=== PATIENT | female | born 1970 | race Caucasian/White ===

== ENCOUNTER → 2019-01-08 09:03 | Outpatient (CLI) | payer OTHER, MEDICAID, SELFPAY ==
--- NOTE | 2019-01-08 | DI.MG.S_ITS ---
BILATERAL DIGITAL SCREENING MAMMOGRAM 3D/2D WITH CAD: 01/08/2019 CLINICAL: Routine screening. Comparison is made to exams dated: 01/07/2017 mammogram, 01/03/2016 mammogram, and 05/03/2014 mammogram - [facility]. The tissue of both breasts is heterogeneously dense. This may lower the sensitivity of mammography. Current study was also evaluated with a Computer Aided Detection (CAD) system. No significant masses, calcifications, or other findings are seen in either breast. There has been no significant interval change. IMPRESSION: NEGATIVE There is no mammographic evidence of malignancy. A 1 year screening mammogram is recommended. This exam was interpreted at Station ID: [id number]. NOTE: For mammograms, a report in lay terms will be sent to the patient. Approximately 15% of breast malignancies will not be visualized mammographically. In the management of a palpable breast mass, a negative mammogram must not discourage biopsy of a clinically suspicious lesion. Electronically Signed By: Holger henry/nicole:01/10/2019 07:02:22 copy to: Rhiannon Saavedra letter sent: Normal Exam ACR BI-RADS Category 1: Negative 3341F
== END ==
PROVIDERS: PCP Family Medicine; Visit Provider Family Medicine
DX: Z12.31 Encounter for screening mammogram for malignant neoplasm of breast (principal)
CPT/HCPCS: 77063; 77067

== ENCOUNTER → 2019-11-10 15:19 | Outpatient (CLI) | payer OTHER, MEDICAID, SELFPAY | PROVIDERS: PCP Family Medicine; Referring Provider Family Medicine; Visit Provider Family Medicine | DX: Z78.0 Asymptomatic menopausal state (principal); Z82.62 Family history of osteoporosis | CPT/HCPCS: 77080 ==

== ENCOUNTER → 2019-12-24 08:29 | Outpatient (CLI) | payer OTHER, MEDICAID, SELFPAY ==
[2019-12-24 09:19] LABS: Add Manual Diff / Slide Review NO; Basophils Absolute Auto 0 /uL (0-100); Basophils Percent Auto 0.9 % (0-2); Eosinophils Absolute Auto 200 /uL (0-450); Eosinophils Percent Auto 4.8 % (2-4); Hematocrit 45.9 % (36-46); Hemoglobin 15.4 g/dL (12.0-16.0); Lymphocytes Absolute Auto 1300 /uL (1100-4500); Lymphocytes Percent Auto 26.3 % (25-40); Mean Corpuscular HGB Conc 33.6 % (30-36); Mean Corpuscular Hemoglobin 31.3 PG (26-34); Mean Corpuscular Volume 93.2 fL (80-100); Monocytes Absolute Auto 300 /uL (0-900); Monocytes Percent Auto 6.4 % (3-14); Neutrophils Absolute Auto 3000 /uL (1500-7000); Neutrophils Percent Auto 61.6 % (50-75); Platelet Count 222 X10^3/uL (150-400); Red Blood Cell Count 4.92 X10^6/uL (4.0-5.2); Red Cell Distribution Width 12.6 % (11.6-14.8); White Blood Cell Count 4.9 X10^3/uL (4.5-11.0)
[2019-12-24 09:33] LABS: Alanine Aminotransferase 18 IU/L (<35); Albumin 4.1 g/dL (3.5-5.0); Albumin Globulin Ratio 1.3 (1.0-2.8); Alkaline Phosphatase 71 U/L (38-126); Aspartate Aminotransferase 32 IU/L (14-36); BUN Creatinine Ratio 22.7 (6-22); Bilirubin Total 0.6 mg/dL (0.2-1.3); Blood Urea Nitrogen 17 mg/dL (7-17); Calcium 9.3 mg/dL (8.4-10.2); Carbon Dioxide 30 mmol/L (22-32); Chloride 106 mmol/L (98-107); Cholesterol 222 mg/dL (140-199); Estimated Glomerular Filt Rate > 60.0 mL/min (>60); Globulin 3.2 g/dL (1.7-4.1); Glucose 113 mg/dL (70-100); HDL Cholesterol 53 mg/dL (40-60); HEMOLYSIS < 15 (0-50); LDL Cholesterol Calculated 153 mg/dL (<100); Potassium 3.8 mmol/L (3.4-5.1); Sodium 139 mmol/L (137-145); Total Protein 7.3 g/dL (6.3-8.2); Triglycerides 82 mg/dL (35-150)
[2019-12-24 09:47] LABS: Creatinine Urine Random 211.9 mg/dL
[2019-12-24 09:53] LABS: Microalbumi Creatinin Ratio Ur 2.8 ug/mg CR (<30); Microalbumin Urine Random 0.6 mg/dL (0-1.6)
[2019-12-24 10:17] LABS: Thyroid Stimulating Hormone 1.17 uIU/mL (0.47-4.68)
[2019-12-26 09:25] LABS: Hemoglobin A1C% w Est Avg Glu 5.3 % (4.0-6.0)
== END ==
PROVIDERS: PCP Family Medicine; Referring Provider Family Medicine; Visit Provider Family Medicine
DX: I10 Essential (primary) hypertension (principal)
CPT/HCPCS: 36415; 80053; 80061; 82043; 82570; 83036; 84443; 85025

== ENCOUNTER → 2020-02-18 14:53 | Outpatient (CLI) | payer OTHER, MEDICAID, SELFPAY | PROVIDERS: PCP Family Medicine; Visit Provider Physician Assistant | DX: N34.3 Urethral syndrome, unspecified (principal) | CPT/HCPCS: 87086 ==

== ENCOUNTER → 2020-06-28 15:38 | Outpatient (CLI) | payer OTHER, MEDICAID, SELFPAY ==
[2020-06-28] MEDS: COVID-19 VACC #1, MRNA(MOD) 100 MCG/0.5 ML VIAL IM (15:48)
== END ==
PROVIDERS: PCP Family Medicine; Visit Provider Internal Medicine
DX: Z23 Encounter for immunization (principal)
CPT/HCPCS: 0011A; 91301

== ENCOUNTER → 2020-08-03 15:25 | Outpatient (CLI) | payer OTHER, MEDICAID, SELFPAY ==
[2020-08-03] MEDS: COVID-19 VACC #2, MRNA(MOD) 100 MCG/0.5 ML VIAL IM (15:44)
== END ==
PROVIDERS: PCP Family Medicine; Visit Provider Internal Medicine
DX: Z23 Encounter for immunization (principal)
CPT/HCPCS: 0012A; 91301

== ENCOUNTER → 2021-03-11 17:20 | Outpatient (CLI) | payer OTHER, MEDICAID, SELFPAY ==
--- NOTE | 2021-03-11 | DI.MG.S_ITS ---
BILATERAL DIGITAL SCREENING MAMMOGRAM 3D/2D WITH CAD: 03/11/2021 CLINICAL: Routine screening. Comparison is made to exams dated: 01/08/2019 mammogram, 01/07/2017 mammogram, and 01/03/2016 mammogram - [facility]. The tissue of both breasts is heterogeneously dense. This may lower the sensitivity of mammography. Current study was also evaluated with a Computer Aided Detection (CAD) system. There are benign calcifications in both breasts. No significant masses, calcifications, or other findings are seen in either breast. There has been no significant interval change. IMPRESSION: BENIGN There is no mammographic evidence of malignancy. A 1 year screening mammogram is recommended. This exam was interpreted at Station ID: [id number]. NOTE: For mammograms, a report in lay terms will be sent to the patient. Approximately 15% of breast malignancies will not be visualized mammographically. In the management of a palpable breast mass, a negative mammogram must not discourage biopsy of a clinically suspicious lesion. Electronically Signed By: Surjit george/nicole:03/12/2021 13:53:39 copy to: Rhiannon Saavedra letter sent: Normal Exam ACR BI-RADS Category 2: Benign Finding(s) 3342F
== END ==
PROVIDERS: PCP Family Medicine; Referring Provider Family Medicine; Visit Provider Family Medicine
DX: Z12.31 Encounter for screening mammogram for malignant neoplasm of breast (principal)
CPT/HCPCS: 77063; 77067

== ENCOUNTER → 2021-08-12 10:05 | Outpatient (CLI) | payer OTHER, MEDICAID, SELFPAY ==
[2021-08-12 12:18] LABS: COVID19 -Nasal RAPID Negative (Negative)
== END ==
PROVIDERS: PCP Family Medicine; Visit Provider Surgery
DX: Z20.822 Contact with and (suspected) exposure to COVID-19 (principal); Z01.812 Encounter for preprocedural laboratory examination
CPT/HCPCS: 87635; C9803

== ENCOUNTER 2021-08-13 08:09 | Day surgery (SDC) | payer OTHER, MEDICAID, SELFPAY ==
--- NOTE | 2021-08-13 | PATH_ITS ---
[facility] Accession Number: [id number] . 01 Material submitted: . rectum - RECTAL COLON POLYP . 01 Diagnosis: Rectal Polyp, Biopsy: Hyperplastic polyp. MRV 08/16/2021 1229 Local . 01 Electronically signed: . Gian Becerril MD, PhD, Pathologist NPI- [id number] . 01 Gross description: . RECTAL COLON POLYP: Received in formalin is 1 fragment(s) of schumacher, soft tissue measuring 0.3 x 0.2 x 0.2 cm submitted entirely in 1 cassette(s) /MWS 08/14/2021 0719 Local . 01 Pathologist provided ICD-10: K62.1 . 01 CPT . 457623 Specimen Comment: A courtesy copy of this report has been sent to [phone] Performed at: [address] [facility] [address] [place] [address] [id number] MD Surjit Hutchinson MD Phone: [phone]
[2021-08-13 08:23] VITALS: BP 138/75; PULSE 77; RESP 16; TEMP 36.5; O2SAT 99; BMI 22.3
[2021-08-13] MEDS: LACTATED RINGERS 1,000 ML 200 ML IV (08:42)
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
--- NOTE | 2021-08-13 09:38 | P.OP.COLON_ITS ---
Operative Date/Time/Diagnoses Date of procedure: 08/13/21 Time of procedure: 09:39 Pre-op diagnosis: Screening Post-op diagnosis: same Procedure & Clinicians Study performed: Colonoscopy Same procedure as scheduled: Yes Indications: Screening Surgeon: Jimbo Villegas Procedure Notes Procedure in detail: Medications: Conscious sedation using 6mg IV midazolam and 200mcg IV of fentanyl The history and physical was performed/updated and the patient is ASA class is 2. The procedure was discussed in detail with the patient. Potential risks complications including infection, bleeding, missed diagnosis, perforation, need for surgery, and were explained. Their questions were answered and informed consent was obtained. Patient was brought to the procedure room and placed standard monitoring equipment. The patient's vital signs were monitored continuously throughout the entire procedure. Prior to starting time-out was performed. The patient was placed in the left lateral recumbent position. Procedural sedation was adminis tered. Examination began with a thorough inspection of the perianal area there was no evidence of fissures, fistulae, external hemorrhoids or cutaneous malignancy. The colonoscopy scope was then placed into the anal canal and was advanced to the cecum, which was identified by the ileocecal valve, the appendiceal orifice and the confluence of the taenia. The scope was then slowly withdrawn examining colon thoroughly in all directions, irrigating it of any residual stool. FINDINGS 1. Rectum-distal 5 mm polyp removed with biopsy forceps 2. Remainder of colon was normal healthy in appearance The patient tolerated the procedure well. They will be discharged once criteria are met. The prep was of good/excellent quality. The withdrawl time was 6 minutes. The sedation time was 17 minutes. Specimen(s): other (Rectal polyp) Complications: none Post-procedure Recommendations: Colonoscopy in 5 years Disposition: same day surgery
[2021-08-13] MEDS: fentaNYL 250 MCG/5 ML INJ 200 MCG IV (09:48)
[2021-08-13] MEDS: MIDAZOLAM 5 MG/5 ML VIAL 6 MG IV (09:48)
[2021-08-13 10:03] VITALS: BP 118/74; PULSE 78; RESP 16; TEMP 36.3; O2SAT 96
[2021-08-13 10:08] VITALS: BP 112/71; PULSE 67; RESP 14; O2SAT 98
[2021-08-13 10:13] VITALS: BP 119/79; PULSE 74; RESP 16; O2SAT 99
[2021-08-13 10:28] VITALS: BP 128/84; PULSE 72; RESP 14; O2SAT 99
== END 2021-08-13 10:30 | disposition home or self-care (01) ==
PROVIDERS: PCP Family Medicine; Referring Provider Surgery; Visit Provider Surgery
PROC: 0DJD8ZZ Inspection of Lower Intestinal Tract, Via Natural or Artificial Opening Endoscopic (ICD-10-PCS; CPT 45378; principal; 2021-08-13 09:15)
DX: Z12.11 Encounter for screening for malignant neoplasm of colon (principal); K62.1 Rectal polyp
CPT/HCPCS: 45380; 99152; J2250; J3010

== ENCOUNTER → 2022-01-09 08:44 | Outpatient (CLI) | payer OTHER, MEDICAID, SELFPAY ==
[2022-01-09 10:35] LABS: Hemoglobin A1C% w Est Avg Glu 5.5 % (4.0-6.0)
[2022-01-09 10:42] LABS: Add Manual Diff / Slide Review NO; Basophils Absolute Auto 0 /uL (0-100); Basophils Percent Auto 0.6 % (0-2); Eosinophils Absolute Auto 300 /uL (0-450); Eosinophils Percent Auto 5.2 % (2-4); Hematocrit 43.3 % (36-46); Hemoglobin 14.8 g/dL (12.0-16.0); Lymphocytes Absolute Auto 1200 /uL (1100-4500); Lymphocytes Percent Auto 24.3 % (25-40); Mean Corpuscular HGB Conc 34.1 % (30-36); Mean Corpuscular Hemoglobin 31.4 PG (26-34); Mean Corpuscular Volume 92.1 fL (80-100); Monocytes Absolute Auto 300 /uL (0-900); Monocytes Percent Auto 6.5 % (3-14); Neutrophils Absolute Auto 3100 /uL (1500-7000); Neutrophils Percent Auto 63.4 % (50-75); Platelet Count 241 X10^3/uL (150-400); White Blood Cell Count 4.9 X10^3/uL (4.5-11.0)
[2022-01-09 11:08] LABS: Alanine Aminotransferase 31 IU/L (<35); Albumin Globulin Ratio 1.3 (1.0-2.8); Alkaline Phosphatase 85 U/L (38-126); Aspartate Aminotransferase 32 IU/L (14-36); BUN Creatinine Ratio 22.8 (6-22); Bilirubin Total 0.5 mg/dL (0.2-1.3); Blood Urea Nitrogen 18 mg/dL (7-17); Calcium 9.3 mg/dL (8.4-10.2); Carbon Dioxide 29 mmol/L (22-32); Chloride 105 mmol/L (98-107); Cholesterol 214 mg/dL (140-199); Estimated Glomerular Filt Rate > 60 mL/min (>60); Glucose 92 mg/dL (70-100); HDL Cholesterol 58 mg/dL (40-60); HEMOLYSIS < 15 (0-50); LDL Cholesterol Calculated 143 mg/dL (<100); Potassium 4.1 mmol/L (3.4-5.1); Sodium 141 mmol/L (137-145); Triglycerides 64 mg/dL (35-150)
== END ==
PROVIDERS: PCP Family Medicine; Referring Provider Family Medicine; Visit Provider Family Medicine
DX: I10 Essential (primary) hypertension (principal); R73.9 Hyperglycemia, unspecified
CPT/HCPCS: 36415; 80053; 80061; 83036; 85025

== ENCOUNTER → 2022-03-15 10:33 | Outpatient (CLI) | payer OTHER, MEDICAID, SELFPAY ==
--- NOTE | 2022-03-15 10:34 | DI.MG.S_ITS ---
BILATERAL DIGITAL SCREENING MAMMOGRAM 3D/2D WITH CAD: 03/15/2022 CLINICAL: Routine screening. Comparison is made to exams dated: 03/11/2021 mammogram, 01/08/2019 mammogram, and 01/07/2017 mammogram - [facility]. Both breasts are heterogeneously dense, which may obscure small masses (category c / 51-75% glandular tissue). Current study was also evaluated with a Computer Aided Detection (CAD) system. There are benign calcifications in both breasts. No significant masses, calcifications, or other findings are seen in either breast. There has been no significant interval change. IMPRESSION: BENIGN There is no mammographic evidence of malignancy. A 1 year screening mammogram is recommended. Based on the Tyrer Cuzick model (a risk assessment model) the patient's lifetime risk is 10.2% and her 10 year risk is 2.8%. According to the ACR, ACS, and NCCN guidelines, an annual breast MRI exam along with mammogram is recommended if the patient's lifetime risk is 20% or greater. This exam was interpreted at Station ID: [id number]. NOTE: For mammograms, a report in lay terms will be sent to the patient. Approximately 15% of breast malignancies will not be visualized mammographically. In the management of a palpable breast mass, a negative mammogram must not discourage biopsy of a clinically suspicious lesion. Electronically Signed By: Surjit george/nicole:03/17/2022 02:30:07 copy to: Rhiannon Saavedra letter sent: Normal Exam ACR BI-RADS Category 2: Benign Finding(s) 3342F
== END ==
PROVIDERS: PCP Family Medicine; Referring Provider Family Medicine; Visit Provider Family Medicine
DX: Z12.31 Encounter for screening mammogram for malignant neoplasm of breast (principal)
CPT/HCPCS: 77063; 77067

== ENCOUNTER → 2022-05-11 12:14 | Outpatient (CLI) | payer OTHER, MEDICAID, SELFPAY ==
[2022-05-11 14:43] LABS: Influenza A - CEPHEID Flu A NEGATIVE (NEGATIVE); Influenza B - CEPHEID Flu B NEGATIVE (NEGATIVE); Respiratory Syncytial Virus Negative (Negative)
[2022-05-11 14:51] LABS: COVID-19 CEPHEID 4-PLEX PCR Negative (Negative)
== END ==
PROVIDERS: PCP Family Medicine; Visit Provider Registered Nurse
DX: J02.9 Acute pharyngitis, unspecified (principal); B34.9 Viral infection, unspecified; Z20.822 Contact with and (suspected) exposure to COVID-19
CPT/HCPCS: 0241U; 87070; 87077; 87880

== ENCOUNTER → 2022-10-02 08:53 | Outpatient (CLI) | payer OTHER, MEDICAID, SELFPAY ==
[2022-10-02 10:14] LABS: Add Manual Diff / Slide Review NO; Basophils Absolute Auto 0 /uL (0-100); Eosinophils Absolute Auto 200 /uL (0-450); Eosinophils Percent Auto 4.1 % (2-4); Hematocrit 44.1 % (36-46); Hemoglobin 15.3 g/dL (12.0-16.0); Lymphocytes Absolute Auto 1400 /uL (1100-4500); Mean Corpuscular HGB Conc 34.8 % (30-36); Mean Corpuscular Hemoglobin 32.2 PG (26-34); Mean Corpuscular Volume 92.5 fL (80-100); Monocytes Absolute Auto 400 /uL (0-900); Monocytes Percent Auto 7.9 % (3-14); Neutrophils Absolute Auto 2700 /uL (1500-7000); Platelet Count 214 X10^3/uL (150-400); Red Blood Cell Count 4.77 X10^6/uL (4.0-5.2); Red Cell Distribution Width 12.4 % (11.6-14.8); White Blood Cell Count 4.8 X10^3/uL (4.5-11.0)
[2022-10-02 10:58] LABS: HEMOLYSIS < 15 (0-50); Iron 115 ug/dL (37-170)
[2022-10-02 11:09] LABS: Percent Iron Saturation 33 % (15-50); Total Iron Binding Capacity 348 ug/dL (265-497); Transferrin 263 mg/dL (206-381)
[2022-10-02 11:17] LABS: Free T4, Direct Thyroxine 0.98 ng/dL (0.78-2.19)
[2022-10-02 11:31] LABS: Thyroid Stimulating Hormone 1.94 uIU/mL (0.47-4.68)
[2022-10-02 11:33] LABS: Estradiol, Total 20.9 pg/mL
[2022-10-09 11:16] LABS: Percent Free Testosterone 1.66 % (0.50-2.80); Testosterone Free 0.43 ng/dL (0.10-0.85)
== END ==
PROVIDERS: PCP Family Medicine; Referring Provider Obstetrics & Gynecology; Visit Provider Obstetrics & Gynecology
DX: N95.1 Menopausal and female climacteric states (principal); R53.83 Other fatigue
CPT/HCPCS: 36415; 82670; 83540; 83550; 84402; 84403; 84439; 84443; 85025

== ENCOUNTER → 2023-01-06 13:16 | Outpatient (CLI) | payer OTHER, MEDICAID, SELFPAY ==
--- NOTE | 2023-01-06 13:17 | DI.US.S_ITS ---
PROCEDURE: US SOFT TISSUE HEAD AND NECK INDICATIONS: possible embedded glass in forehead TECHNIQUE: Real-time scanning was performed of the neck region of interest, with image documentation. COMPARISON: None. FINDINGS: There is a 7 mm mildly hypoechoic nonvascular focus within the soft tissues of the scalp with a few surrounding tiny echogenic foci. IMPRESSION: Possible foreign body within the scalp. Dictated by: Wendi Reynolds M.D. on 01/06/2023 at 16:42 Approved by: Wendi Reynolds M.D. on 01/06/2023 at 16:42
== END ==
PROVIDERS: PCP Family Medicine; Referring Provider Family Medicine; Visit Provider Family Medicine
DX: R22.0 Localized swelling, mass and lump, head (principal)
CPT/HCPCS: 76536

== ENCOUNTER → 2023-03-16 12:55 | Outpatient (CLI) | payer OTHER, MEDICAID, SELFPAY ==
--- NOTE | 2023-03-16 12:56 | DI.MG.S_ITS ---
BILATERAL DIGITAL SCREENING MAMMOGRAM 3D/2D WITH CAD: 03/16/2023 CLINICAL: Routine screening. Comparison is made to exams dated: 03/15/2022 mammogram, 03/11/2021 mammogram, and 01/08/2019 mammogram - [facility]. Both breasts are heterogeneously dense, which may obscure small masses (category c / 51-75% glandular tissue). Current study was also evaluated with a Computer Aided Detection (CAD) system. There are benign calcifications in both breasts. No significant masses, calcifications, or other findings are seen in either breast. There has been no significant interval change. IMPRESSION: BENIGN There is no mammographic evidence of malignancy. A 1 year screening mammogram is recommended. Based on the Tyrer Cuzick model (a risk assessment model) the patient's lifetime risk is 10.1% and her 10 year risk is 2.9%. According to the ACR, ACS, and NCCN guidelines, an annual breast MRI exam along with mammogram is recommended if the patient's lifetime risk is 20% or greater. This exam was interpreted at Station ID: [id number]. NOTE: For mammograms, a report in lay terms will be sent to the patient. Approximately 15% of breast malignancies will not be visualized mammographically. In the management of a palpable breast mass, a negative mammogram must not discourage biopsy of a clinically suspicious lesion. Electronically Signed By: Holger henry/nicole:03/16/2023 19:03:56 copy to: Rhiannon Saavedra letter sent: Normal Exam ACR BI-RADS Category 2: Benign Finding(s) 3342F
== END ==
PROVIDERS: PCP Family Medicine; Referring Provider Family Medicine; Visit Provider Family Medicine
DX: Z12.31 Encounter for screening mammogram for malignant neoplasm of breast (principal); R92.333 Mammographic heterogeneous density, bilateral breasts
CPT/HCPCS: 77063; 77067

== ENCOUNTER → 2023-05-26 14:21 | Outpatient (CLI) | payer OTHER, MEDICAID, SELFPAY ==
--- NOTE | 2023-05-26 14:22 | DI.US.S_ITS ---
PROCEDURE: US SOFT TISSUE HEAD AND NECK INDICATIONS: FOLLOW UP POSSIBLE FOREIGN BODY - SEE PRIOR ULTRASOUND 01/15 TECHNIQUE: Real-time scanning was performed of the neck region of interest, with image documentation. COMPARISON: [facility], , US SOFT TISSUE HEAD AND NECK, 01/06/2023, 13:53. Findings and impression: Incision tract is seen at the area of interest of the right forehead. There are two 0.5-1 mm echogenic structures seen on ultrasound, which may represent postsurgical sequelae, versus minute foreign bodies, versus postprocedural air. Dictated by: Devon Pak M.D. on 05/26/2023 at 15:58 Approved by: Devon Pak M.D. on 05/26/2023 at 16:01
== END ==
LOC: US 14:21
PROVIDERS: PCP Family Medicine; Referring Provider Family Medicine; Visit Provider Family Medicine
DX: M79.5 Residual foreign body in soft tissue (principal)
CPT/HCPCS: 76536

== ENCOUNTER → 2023-11-03 18:43 | Outpatient (CLI) | payer OTHER, MEDICAID, SELFPAY | PROVIDERS: PCP Family Medicine; Visit Provider Nurse Practitioner Family | DX: J02.9 Acute pharyngitis, unspecified (principal) | CPT/HCPCS: 87070; 87880 ==

== ENCOUNTER → 2024-02-20 18:03 | Outpatient (CLI) | payer OTHER, SELFPAY | PROVIDERS: PCP Family Medicine; Visit Provider Physician Assistant Medical | DX: R30.0 Dysuria (principal) | CPT/HCPCS: 81002; 87086 ==

== ENCOUNTER → 2024-02-22 18:40 | Outpatient (CLI) | payer OTHER, SELFPAY ==
[2024-02-22 19:31] LABS: Influenza A - CEPHEID Flu A NEGATIVE (NEGATIVE); Influenza B - CEPHEID Flu B NEGATIVE (NEGATIVE); Respiratory Syncytial Virus POSITIVE (Negative)
[2024-02-22 19:32] LABS: COVID-19 CEPHEID 4-PLEX PCR Negative (Negative)
== END ==
PROVIDERS: PCP Family Medicine; Visit Provider Nurse Practitioner Family
DX: R05.1 Acute cough (principal)
CPT/HCPCS: 87635; 87400; 87420; 0241U

== ENCOUNTER → 2024-04-19 09:46 | Outpatient (CLI) | payer OTHER, SELFPAY ==
[2024-04-19 10:10] LABS: Add Manual Diff / Slide Review NO; Basophils Absolute Auto 0 /uL (0-100); Eosinophils Absolute Auto 300 /uL (0-450); Eosinophils Percent Auto 6.5 % (2-4); Hematocrit 43.7 % (36-46); Hemoglobin 14.7 g/dL (12.0-16.0); Lymphocytes Absolute Auto 1200 /uL (1100-4500); Lymphocytes Percent Auto 25.2 % (25-40); Mean Corpuscular HGB Conc 33.5 % (30-36); Mean Corpuscular Hemoglobin 32.1 PG (26-34); Mean Corpuscular Volume 95.7 fL (80-100); Monocytes Absolute Auto 300 /uL (0-900); Monocytes Percent Auto 6.6 % (3-14); Neutrophils Absolute Auto 2800 /uL (1500-7000); Neutrophils Percent Auto 60.7 % (50-75); Platelet Count 190 X10^3/uL (150-400); Red Blood Cell Count 4.57 X10^6/uL (4.0-5.2); White Blood Cell Count 4.6 X10^3/uL (4.5-11.0)
[2024-04-19 10:30] LABS: Alanine Aminotransferase 18 IU/L (<35); Albumin 4.1 g/dL (3.5-5.0); Albumin Globulin Ratio 1.6 (1.0-2.8); Alkaline Phosphatase 58 U/L (38-126); Aspartate Aminotransferase 26 IU/L (14-36); BUN Creatinine Ratio 23.1 (6-22); Bilirubin Total 0.4 mg/dL (0.2-1.3); Blood Urea Nitrogen 18 mg/dL (7-17); Calcium 9.2 mg/dL (8.4-10.2); Carbon Dioxide 26 mmol/L (22-32); Chloride 107 mmol/L (98-107); Cholesterol 229 mg/dL (140-199); Estimated Glomerular Filt Rate > 60 mL/min (>60); Globulin 2.6 g/dL (1.7-4.1); Glucose 97 mg/dL (70-100); HDL Cholesterol 57 mg/dL (40-60); HEMOLYSIS < 15 (0-50); LDL Cholesterol Calculated 153 mg/dL (<100); Sodium 140 mmol/L (137-145); Total Protein 6.7 g/dL (6.3-8.2); Triglycerides 93 mg/dL (35-150)
[2024-04-19 11:03] LABS: Thyroid Stimulating Hormone 1.87 uIU/mL (0.47-4.68)
== END ==
PROVIDERS: PCP Family Medicine; Referring Provider Family Medicine; Visit Provider Family Medicine
DX: Z13.220 Encounter for screening for lipoid disorders (principal); R23.9 Unspecified skin changes; R63.1 Polydipsia
CPT/HCPCS: 36415; 80053; 80061; 83036; 84443; 85025

== ENCOUNTER → 2024-04-21 09:21 | Outpatient (CLI) | payer OTHER, SELFPAY ==
[2024-04-21 10:34] LABS: C-Reactive Protein Quant < 0.5 mg/dL (<1.0)
[2024-04-21 10:47] LABS: Erythrocyte Sedimentation Rate 4 MM/HR (0-20)
[2024-04-22 17:21] LABS: Scleroderma 70 Antibody < 0.2 AI (0.0-0.9)
== END ==
PROVIDERS: PCP Family Medicine; Referring Provider Family Medicine; Visit Provider Family Medicine
DX: L40.9 Psoriasis, unspecified (principal)
CPT/HCPCS: 36415; 85651; 86038; 86140; 86235

== ENCOUNTER → 2024-05-13 13:16 | Outpatient (CLI) | payer OTHER, SELFPAY ==
--- NOTE | 2024-05-13 13:17 | DI.MG.S_ITS ---
MM screening mammo BI: 05/13/2024. BI-RADS: 1 CLINICAL: 54-year old female for bilateral screening mammogram. Tyrer-Cuzick lifetime risk of 8.0%. No personal or first-degree family history of breast cancer. PRIOR EXAMS 03/16/2023, 03/15/2022, 03/11/2021. MAMMOGRAPHY TECHNIQUE: 2D and 3D (tomosynthesis) digital mammographic views obtained, with additional images as needed for full coverage. Current study was also evaluated with a Computer Aided Detection (CAD) system. DENSITY C. The breasts are heterogeneously dense, which may obscure small masses. MAMMOGRAPHY FINDINGS Bilateral: No suspicious mass, asymmetry, microcalcification, or other abnormality seen. No significant change from comparison. IMPRESSION: * No evidence of malignancy. RECOMMENDATIONS Bilateral * Annual screening mammography. OVERALL ASSESSMENT CATEGORY BI-RADS-1: Negative. The [employer] recommends annual screening mammography beginning at age 40 for women with average risk of breast cancer. ELECTRONICALLY SIGNED: Mac Younger M.D. on 05/13/2024 at 02:22:19 PM PT Interpreting Station ID: [id number]
== END ==
PROVIDERS: PCP Family Medicine; Referring Provider Family Medicine; Visit Provider Family Medicine
DX: Z12.31 Encounter for screening mammogram for malignant neoplasm of breast (principal); R92.333 Mammographic heterogeneous density, bilateral breasts
CPT/HCPCS: 77063; 77067

== ENCOUNTER → 2024-05-17 12:54 | Outpatient (CLI) | payer OTHER, SELFPAY ==
--- NOTE | 2024-05-18 15:54 | DIET.OUTPTC ---
Dietary Outpatient Consultation Note Consultation Date: 05/17/2024 Assessment: 54 y F referred for essential primary hypertension. Pt reports wanting to begin following a sustainable health dietary pattern and learn more about nutrition. Has hx of eating disorder. Will diet and eat healthy for period of time (<1000 kcals) and then stop dieting and subsequently overeat. Daily bowel movements type 4 on bristol stool chart. Denies N/V. Coffee, spicy foods, and alcohol trigger rosacea. Diet recall: when providing recall, notes intakes on good days when eating healthy and bad days when not dieting B-good= fruit and cottage cheese, bad=toast and cheese and [place] L-good=chicken and veggies, bad=grilled cheese or quesadilla, chocolate bar D-used to do fast food nightly, has switched to pre-prepped meal service. Used to do lots of the household cooking and is burnt out on cooking now Dessert on non-dieting days 3 8 oz glasses of water coffee daily, 1-3 cups between 8-24 oz depending on day Sometimes uses 2 IV liquid packets per day or 2 vit c emergent packets per day to flavor water Ht: 5 ft 4 in Wt: 142 lb BMI: 24 (data from 04/19/24 PCP visit) Elevated LDL and chol. See lab panel. Nutrition Diagnosis: Food and nutrition related knowledge deficit r/t wanting dietary reccs for general healthy lifestyle aeb pt reporting difficulty between finding balance between dieting and not dieting Interventions: Discussed the following and provided appropriate handouts. Per pt request, emailed handouts as well. -Hydration with no sodium or no sugar added beverages -Caloric needs, pathophysio of inadequate oral intakes (i.e. caloric intake <1000 kcals/day) -MeD or DASH style of eating -Lab values and correlation with nutrition -Education on label reading -Intuitive eating principals/practice Goals- -Eliminate IV liquid packets unless doing strenuous exercise for >1hr and increase hydration using no sodium, no sugar added flavoring or herbal tea to 64 oz a day with help of water tracking kady -Check nutrition facts label for saturated fat on pre-prepped meals delivered -Stop tracking calories, focus on balanced meals and snacks with protein source, whole grain, and fruit or veg to avoid restriction/overeating cycle -Brainstormed breakfast and lunches EER: 25-28 g fiber/day Monitoring/Evaluations: f/u in 4 wks Electronically Signed by: Toya Mccain 05/18/24 15:54 Clinical Dietitian [address] [address]
== END ==
LOC: DIET 12:54
PROVIDERS: PCP Family Medicine; Referring Provider Family Medicine
DX: I10 Essential (primary) hypertension (principal); Z86.39 Personal history of other endocrine, nutritional and metabolic disease; Z68.24 Body mass index [BMI] 24.0-24.9, adult; Z71.3 Dietary counseling and surveillance
CPT/HCPCS: 97802

== ENCOUNTER → 2024-06-23 12:55 | Outpatient (CLI) | payer OTHER, SELFPAY ==
--- NOTE | 2024-06-24 14:06 | DIET.OUTPTC ---
Dietary Outpatient Consultation Note Consultation Date: 06/23/2024 Assessment: 54 y F referred for essential primary hypertension. Pt continues to work on relationship with food. Has been working to avoid guilt/negative thoughts after eating sweets. Has avoided going into a cycle of restriction/dieting. Stress and negative emotions may be leading towards needing a sweet treat as comfort/cooping. Moved to new place with 2 other roommates, struggling to feel comfortable being in shared spaces, i.e. kitchen Still doing meal delivery service for dinner. Ht: 5 ft 4 in Wt: 142 lb BMI: 24 (data from 04/19/24 PCP visit) Elevated LDL and chol. See lab panel. Nutrition Diagnosis: Improving- Food and nutrition related knowledge deficit r/t wanting dietary reccs for general healthy lifestyle aeb pt reporting difficulty between finding balance between dieting and not dieting Interventions: Discussed the following -OR counseling for intuitive eating including acknowledging negative self talk, re-framing, and providing self care and self compassion and enhancing the eating experience -Pt started seeing a therapist as well -Provided resources of intuitive eating journaling questions based on the IE principles Goals- -Identify negative self talk as negative when it occurs -Identifying self care/compassionate cooping mechanisms (i.e. taking 10 minutes to relax, focus on breathing, reading) and working with therapist on this -Improve the eating experience by plating dinner meal and expanding meal time to 20 minutes over 10, paying attention to tastes, textures, and consuming water with meal Monitoring/Evaluations: f/u in 4 wks Electronically Signed by: Toya Mccain 06/24/24 14:06 Clinical Dietitian [address] [id number]
== END ==
PROVIDERS: PCP Family Medicine; Referring Provider Family Medicine
DX: I10 Essential (primary) hypertension (principal); Z68.24 Body mass index [BMI] 24.0-24.9, adult; Z71.3 Dietary counseling and surveillance
CPT/HCPCS: 97803

== ENCOUNTER → 2024-11-11 09:32 | Outpatient (CLI) | payer OTHER, SELFPAY ==
[2024-11-11 10:09] LABS: Add Manual Diff / Slide Review NO; Hematocrit 45.6 % (36-46); Hemoglobin 15.8 g/dL (12.0-16.0); Lymphocytes Absolute Auto 1200 /uL (1100-4500); Mean Corpuscular HGB Conc 34.8 % (30-36); Mean Corpuscular Hemoglobin 31.9 PG (26-34); Mean Corpuscular Volume 91.7 fL (80-100); Platelet Count 203 X10^3/uL (150-400)
[2024-11-11 10:31] LABS: Alanine Aminotransferase 16 IU/L (<35); Albumin 4.2 g/dL (3.5-5.0); Albumin Globulin Ratio 1.3 (1.0-2.8); Alkaline Phosphatase 65 U/L (38-126); Blood Urea Nitrogen 12 mg/dL (7-17); Calcium 9.2 mg/dL (8.4-10.2); Carbon Dioxide 27 mmol/L (22-32); Chloride 104 mmol/L (98-107); Estimated Glomerular Filt Rate > 60 mL/min (>60); Globulin 3.2 g/dL (1.7-4.1); Glucose 100 mg/dL (70-99); HEMOLYSIS < 15 (0-50); Potassium 4.2 mmol/L (3.4-5.1); Sodium 136 mmol/L (137-145); Total Protein 7.4 g/dL (6.3-8.2)
[2024-11-11 10:51] LABS: Vitamin D 25 Hydroxy (D3) 26.1 ng/mL (30.0-100.0)
[2024-11-11 10:53] LABS: Free T3, Triiodothyronine Free 3.86 pg/mL (2.77-5.27)
[2024-11-11 11:06] LABS: Ferritin 46 ng/mL (11-264)
[2024-11-11 11:08] LABS: TSH w/ Reflex to FT4 1.43 uIU/mL (0.47-4.68)
[2024-11-11 11:27] LABS: Vitamin B12 719 pg/mL (239-931)
[2024-11-11 13:35] LABS: HEMOLYSIS < 15 (0-50); Iron 135 ug/dL (37-170); Percent Iron Saturation 42 % (15-50); Total Iron Binding Capacity 318 ug/dL (265-497)
[2024-11-11 13:50] LABS: Transferrin 259 mg/dL (206-381)
== END ==
PROVIDERS: PCP Family Medicine; Referring Provider Nurse Practitioner; Visit Provider Nurse Practitioner
DX: L65.9 Nonscarring hair loss, unspecified (principal)
CPT/HCPCS: 36415; 80053; 82306; 82607; 82728; 83540; 83550; 84443; 84481; 85025